=== PATIENT | male | born 1950 | race Caucasian/White ===

== ENCOUNTER → 2024-01-15 09:46 | Outpatient (REF) | payer MEDICARE, BC, SELFPAY | LOC: MRI 3T 09:46 | PROVIDERS: ATTENDING PHYSICIAN Physical Medicine & Rehabilitation; FAMILY PHYSICIAN Internal Medicine | DX: M54.16 Radiculopathy, lumbar region (principal) | CPT/HCPCS: 72148 ==

== ENCOUNTER → 2024-02-15 06:22 | Day surgery (SDC) | payer MEDICARE, BC, SELFPAY | LOC: GI 06:22 | PROVIDERS: ATTENDING PHYSICIAN Internal Medicine Gastroenterology | DX: Z12.11 Encounter for screening for malignant neoplasm of colon (principal); Z86.010 Personal history of colon polyps; K64.8 Other hemorrhoids; D12.2 Benign neoplasm of ascending colon | CPT/HCPCS: 45380; 88305 ==

== ENCOUNTER → 2025-02-16 14:28 | Outpatient (REF) | payer MEDICARE, BC, SELFPAY | LOC: RCS 14:28 | PROVIDERS: ATTENDING PHYSICIAN Internal Medicine Cardiovascular Disease; FAMILY PHYSICIAN Internal Medicine | DX: I35.1 Nonrheumatic aortic (valve) insufficiency (principal); I35.8 Other nonrheumatic aortic valve disorders; R55 Syncope and collapse; I47.29 Other ventricular tachycardia | CPT/HCPCS: 93306 ==